=== PATIENT | female | born 1995 | race Caucasian/White ===

== ENCOUNTER 2017-06-27 18:04 | Emergency (ER) | payer SELFPAY ==
[2017-06-27 18:11] VITALS: BP 121/72; PULSE 117; TEMP 98; BMI 23.2
[2017-06-27] MEDS ORDERED: TETANUS AND DIPHTHERIA TOXOID 0.5 ML DISP.SYRIN IM ONE (18:56)
--- NOTE | 2017-06-27 21:02 | PDOC ---
History of Present Illness - General Chief Complaint: Syncope/Near Syncope Stated Complaint: HEAD INJURY Time Seen by Provider: 06/27/17 18:50 History Source: Patient Exam Limitations: No Limitations - History of Present Illness Initial Comments: 06/27/17 21:11 22-year-old female with no medical history presents to the emergency department complaining of a syncopal episode in her bathroom approximately one hour prior to her arrival with her sister. Patient states after smoking marijuana, she went into the bathroom applying makeup on when she felt"woozy"causing her to fall face forward as she was attempting to sit on the toilet. Patient denies any dizziness/lightheadedness, neck pains, back pains, chest pain, shortness of breath, abdominal pains, extremity numbness or tingling sensation. Unknown last tetanus. Bleeding controlled to the forehead laceration with direct pressure prior to her arrival to the ER. Timing/Duration: reports: 1 hour Associated Symptoms: reports: denies symptoms Past History - Past Medical History Allergies/Adverse Reactions: Allergies Allergy/AdvReac Type Severity Reaction Status Date / Time No Known Allergies Allergy Verified 06/27/17 18:11 Other medical history: NONE - Psycho/Social/Smoking Cessation Hx Suicidal Ideation: No Smoking History: Never smoked Hx Alcohol Use: Yes (SOCIAL) Drug/Substance Use Hx: No Substance Use Type: Marijuana Review of Systems - Review of Systems Able to Perform ROS?: Yes Comments:: 06/27/17 20:58 CONSTITUTIONAL: Absent: fever, chills, diaphoresis, generalized weakness, malaise, loss of appetite HEENT: Absent: rhinorrhea, nasal congestion, throat pain, throat swelling, difficulty swallowing, mouth swelling, ear pain, eye pain, visual Changes CARDIOVASCULAR: Absent: chest pain, loss of consciousness, palpitations, irregular heart rate, peripheral edema RESPIRATORY: Absent: cough, shortness of breath, dyspnea with exertion, orthopnea, wheezing, stridor, hemoptysis GASTROINTESTINAL: Absent: abdominal pain, abdominal distension, nausea, vomiting, diarrhea, constipation, melena, hematochezia GENITOURINARY: Absent: dysuria, frequency, urgency, hesitancy, hematuria, flank pain, genital pain MUSCULOSKELETAL: Absent: myalgia, arthralgia, joint swelling SKIN: Absent: rash, itching, pallor HEMATOLOGIC/IMMUNOLOGIC: Absent: easy bleeding, easy bruising, lymphadenopathy, frequent infections ENDOCRINE: Absent: unexplained weight gain, unexplained weight loss, heat intolerance, cold intolerance NEUROLOGIC: Absent: headache, focal weakness or paresthesias, dizziness, unsteady gait, seizure, mental status changes, bladder or bowel incontinence PSYCHIATRIC: Absent: anxiety, depression, suicidal or homicidal ideation, hallucinations. Is the patient limited British proficient: No *Physical Exam - Vital Signs Last Vital Signs Temp Pulse Resp BP Pulse Ox 98.0 F 117 H 20 121/72 99 06/27/17 18:07 06/27/17 18:07 06/27/17 18:07 06/27/17 18:07 06/27/17 18:07 - Physical Exam Comments: 06/27/17 20:58 GENERAL: Well developed, well nourished. Awake and alert. No acute distress. HEENT: Normocephalic, atraumatic. PERRLA, EOMI. No conjunctival pallor. Sclera are non- icteric. Moist mucous membranes. Oropharynx is clear. NECK: Supple. Full ROM. No JVD. Carotid pulses 2+ and symmetric, without bruits. No thyromegaly. No lymphadenopathy. CARDIOVASCULAR: Regular rate and rhythm. No murmurs, rubs, or gallops. Distal pulses are 2+ and symmetric. PULMONARY: No evidence of respiratory distress. Lungs clear to auscultation bilaterally. No wheezing, rales or rhonchi. ABDOMINAL: Soft. Non-tender. Non-distended. No rebound or guarding. No organomegaly. Normoactive bowel sounds. MUSCULOSKELETAL Normal range of motion at all joints. No bony deformities or tenderness. No CVA tenderness. EXTREMITIES: No cyanosis. No clubbing. No edema. No calf tenderness. SKIN: +2cm horizontal mid forehead lac Warm and dry. Normal capillary refill. No rashes. No jaundice. NEUROLOGICAL: Alert, awake, appropriate. Cranial nerves 2-12 intact. No deficits to light touch and temperature in face, upper extremities and lower extremities. No motor deficits in the in face, upper extremities and lower extremities. Normoreflexic in the upper and lower extremities. Normal speech. Toes are down- going bilaterally. Gait is normal without ataxia. PSYCHIATRIC: Cooperative. Good eye contact. Appropriate mood and affect. PROCEDURE: 2cm frontal forehead horizontal lac Betadine prep NS copious irrigation (2) 4.0 vicryl sq (4) 6.0 prolene simple interrupted/skin Bacitracin Bandaid ED Treatment Course - ADDITIONAL ORDERS Additional order review: Laboratory Results 06/27/17 19:21 Urine HCG, Qual Negative - RADIOLOGY Radiograph Interpretation: 06/27/17 23:00 CT head w/o contrast: NL - Medications Given in the ED: ED Medications Discontinued Medications Generic Name Dose Route Start Last Admin Trade Name Freq PRN Reason Stop Dose Admin Tetanus/Diphtheria Toxoids Adsorbed 0.5 ml 06/27/17 18:56 06/27/17 20:15 Decavac IM 06/27/17 18:57 0.5 ml .ONCE ONE Administration *DC/Admit/Observation/Transfer Diagnosis at time of Disposition: Forehead laceration Qualifiers: Encounter type: initial encounter Qualified Code(s): S01.81XA - Laceration without foreign body of other part of head, initial encounter Head injury Qualifiers: Encounter type: initial encounter Qualified Code(s): S09.90XA - Unspecified injury of head, initial encounter - Discharge Dispostion Condition at time of disposition: Stable Admit: No - Referrals Referrals: Mingo Hernandez MD [Primary Care Provider] - - Patient Instructions Printed Discharge Instructions: DI for Closed Head Injury, DI for Laceration Repair Additional Instructions: Keep the incision clean and dry for 24 hours. After 24 hours, you may allow the soap and water to rinse off your incision. Avoid direct pressure of the water to the incision. Pat the incision dry with a clean clothe. Apply a small amount of bacitracin onto the incision. Cover the incision loosely with a bandaid. Take tylenol/motrin as needed for pain. Follow up with your physician or the ER in 48 hours for a wound check. Return to the ER if you notice red streaks, increase redness/swelling/severe pain to the incision. Suture removal in 7 days.
--- NOTE | 2017-06-27 21:04 | PDOC ---
*Physical Exam - Vital Signs Last Vital Signs Temp Pulse Resp BP Pulse Ox 98.0 F 117 H 20 121/72 99 06/27/17 18:07 06/27/17 18:07 06/27/17 18:07 06/27/17 18:07 06/27/17 18:07 Heart Score/ECG Review #1 ECG reviewed & interpreted by me at: 20:51 General ECG Interpretation: Sinus Rhythm, Normal Rate (76), Normal Intervals ( qtc 427, no brugada criteria), No acute ischemic changes ED Treatment Course - ADDITIONAL ORDERS Additional order review: Laboratory Results 06/27/17 19:21 Urine HCG, Qual Negative - Medications Given in the ED: ED Medications Discontinued Medications Generic Name Dose Route Start Last Admin Trade Name Freq PRN Reason Stop Dose Admin Tetanus/Diphtheria Toxoids Adsorbed 0.5 ml 06/27/17 18:56 06/27/17 20:15 Decavac IM 06/27/17 18:57 0.5 ml .ONCE ONE Administration Medical Decision Making - Medical Decision Making 06/27/17 21:04 Seen with MLP: 22y/o F with mechanical fall and forehead injury. isolated injury, no other complaints. no LOC, no neck/neuro complaints. VSS linear horizontal laceration to forehead s/p repair by resident: see procedure note no midline spine ttp, FROM otherwise atraumatic, Neuro exam normal 22y/o F with mechanical fall and closed head injury. forehead lac s/p repair. scar counseling performed, concussion counseling performed ct head update tetanus dispo *DC/Admit/Observation/Transfer Diagnosis at time of Disposition: Forehead laceration Qualifiers: Encounter type: initial encounter Qualified Code(s): S01.81XA - Laceration without foreign body of other part of head, initial encounter Head injury Qualifiers: Encounter type: initial encounter Qualified Code(s): S09.90XA - Unspecified injury of head, initial encounter - Discharge Dispostion Condition at time of disposition: Stable - Referrals Referrals: Mingo Hernandez MD [Primary Care Provider] - - Patient Instructions Printed Discharge Instructions: DI for Laceration Repair, DI for Closed Head Injury Additional Instructions: Keep the incision clean and dry for 24 hours. After 24 hours, you may allow the soap and water to rinse off your incision. Avoid direct pressure of the water to the incision. Pat the incision dry with a clean clothe. Apply a small amount of bacitracin onto the incision. Cover the incision loosely with a bandaid. Take tylenol/motrin as needed for pain. Follow up with your physician or the ER in 48 hours for a wound check. Return to the ER if you notice red streaks, increase redness/swelling/severe pain to the incision. Suture removal in 7 days.
--- NOTE | 2017-06-28 20:33 | EKG ---
Test Reason : Blood Pressure : / mmHG Vent. Rate : 076 BPM Atrial Rate : 076 BPM P-R Int : 136 ms QRS Dur : 088 ms QT Int : 380 ms P-R-T Axes : 039 048 057 degrees QTc Int : 427 ms NORMAL SINUS RHYTHM NORMAL ECG NO PREVIOUS ECGS AVAILABLE Confirmed by RACHELL MICHAEL MD ([id number]) on 06/28/2017 8:33:41 PM Referred By: Confirmed By:RACHELL MICHAEL MD
== END 2017-06-27 23:26 | disposition home or self-care (01) ==
LOC: JER 18:04
PROC: 0HQ1XZZ Repair Face Skin, External Approach (ICD-10-PCS; principal; 2017-06-27)
PROC: 3E0234Z Introduction of Serum, Toxoid and Vaccine into Muscle, Percutaneous Approach (ICD-10-PCS; 2017-06-27)
DX: S01.81XA Laceration without foreign body of other part of head, initial encounter (principal); W18.39XA Other fall on same level, initial encounter; Y93.89 Activity, other specified; Y92.012 Bathroom of single-family (private) house as the place of occurrence of the external cause
CPT/HCPCS: 70450-TC; 84703; 93005; 93010; 99282-25